=== PATIENT | female | born 1985 | race African-American/Black ===

== ENCOUNTER 2016-10-02 00:26 | Emergency (ER) | payer SELFPAY ==
[~2016-10-02] VITALS: Ht 157.5 cm; Wt 50.0 kg
[2016-10-02 00:42] VITALS: BP 127/77
[2016-10-02] MEDS ORDERED: DIPHENHYDRAMINE 25MG CAPSULE PO ONE (01:15)
[2016-10-02] MEDS ORDERED: IPRATROPIUM/ALBUTEROL 0.5-3(2.5)MG/3ML NEB HHN ONE (01:15)
== END 2016-10-02 02:07 | disposition home or self-care (01) ==
LOC: ER 00:27
DX: R06.02 Shortness of breath (principal); L40.9 Psoriasis, unspecified; F17.200 Nicotine dependence, unspecified, uncomplicated
CPT/HCPCS: 94640; 99283; J7620; Q0163